=== PATIENT | male | born 1990 | race Caucasian/White ===

== ENCOUNTER 2020-03-03 10:16 | Emergency (ER) | payer SELFPAY ==
[~2020-03-03] VITALS: Ht 180.3 cm; Wt 61.8 kg
[2020-03-03 10:20] VITALS: BP 156/81
[2020-03-03] MEDS ORDERED: LIDOCAINE 1% Multi-Dose 20 ML VIAL. INJ ONE (10:30)
--- NOTE | 2020-03-03 11:37 | PHYS DOC ---
Past Medical History Past Medical History: No Pertinent History Past Surgical History: No Surgical History Smoking Status: Current Every Day Smoker Alcohol Use: Heavy Additional Information: DRINKS 6 BEERS DAILY Social History Narrative: OCCASIONAL MARIJUANA USE General Adult EDM: Chief Complaint: THUMB HPI: HPI: Patient is a 29-year-old otherwise healthy male who presents with right thumb swelling and pain. He was seen on Tuesday for pain and redness was started on Bactrim for a presumed paronychia. He states over the last 24 hours or so the redness and swelling has intensified and the pain has been severe. He denies any fever chills or sweats. He does state that it is painful if he tries to flex his thumb at the DIP. 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 [] Review of Systems: Review of Systems: Constitutional: Denies fever or chills. [] Eyes: Denies change in visual acuity. [] HENT: Denies nasal congestion or sore throat. [] Respiratory: Denies cough or shortness of breath. [] Cardiovascular: Denies chest pain or edema. [] GI: Denies abdominal pain, nausea, vomiting, bloody stools or diarrhea. [] : Denies dysuria. [] Musculoskeletal: Per HPI [] Integument: Denies rash. [] Neurologic: Denies headache, focal weakness or sensory changes. [] Endocrine: Denies polyuria or polydipsia. [] Lymphatic: Denies swollen glands. [] Psychiatric: Denies depression or anxiety. [] Heart Score: Risk Factors: Risk Factors: DM, Current or recent (<one month) smoker, HTN, HLP, family history of CAD, obesity. Risk Scores: Score 0 - 3: 2.5% MACE over next 6 weeks - Discharge Home Score 4 - 6: 20.3% MACE over next 6 weeks - Admit for Clinical Observation Score 7 - 10: 72.7% MACE over next 6 weeks - Early Invasive Strategies Current Medications: Current Medications Medications (Trade) Dose Ordered Sig/Ginny Start Time Stop Time Status Last Admin Dose Admin Lidocaine HCl (Lidocaine 1% 20ml Vial) 20 ml 1X ONCE 03/03/20 10:30 03/03/20 10:33 DC 03/03/20 10:38 20 ML Allergies: Allergies: Allergies Coded Allergies Type Severity Reaction Last Updated Verified No Known Drug Allergies 03/03/20 No Physical Exam: PE: Constitutional: Well developed, well nourished, moderate distress, non-toxic appearance. [] HENT: Normocephalic, atraumatic, bilateral external ears normal, oropharynx moist, no oral exudates, nose normal. [] Eyes: PERRLA, EOMI, conjunctiva normal, no discharge. [] Neck: Normal range of motion, no tenderness, supple, no stridor. [] Cardiovascular:Heart rate regular rhythm, no murmur [] Lungs & Thorax: Bilateral breath sounds clear to auscultation [] Abdomen: Bowel sounds normal, soft, no tenderness, no masses, no pulsatile masses. [] Skin: Right thumb paronychia with abscess. [] Back: No tenderness, no CVA tenderness. [] Extremities: No tenderness, no cyanosis, no clubbing, ROM intact, no edema. [] Neurologic: Alert and oriented X 3, normal motor function, normal sensory function, no focal deficits noted. [] Psychologic: Anxious [] Current Patient Data: Vital Signs: Vital Signs Date Time Temp Pulse Resp B/P (MAP) Pulse Ox O2 Delivery O2 Flow Rate FiO2 03/03/20 10:20 98.2 91 16 156/81 (106) 96 98.2 EKG: EKG: [] Radiology/Procedures: Radiology/Procedures: [] Course & Med Decision Making: Course & Med Decision Making Pertinent Labs and Imaging studies reviewed. (See chart for details) [Procedure: Abscess incision and drainage Digital block on the right thumb was performed using approximately 10 cc of 1% lidocaine without epinephrine. Once adequate anesthesia was obtained the proximal nail was dissected out with a large amount of purulent material then the lateral aspect of the nail was trimmed with more purulent material which was a subungual abscess was drained.] Dragon Disclaimer: Dragon Disclaimer: This electronic medical record was generated, in whole or in part, using a voice recognition dictation system. Departure Departure Impression: Primary Impression: Paronychia of thumb, right Disposition: 01 HOME, SELF-CARE Condition: IMPROVED Referrals: NO PCP (PCP) Patient Instructions: Abscess, Paronychia Additional Instructions: Continue taking your Bactrim antibiotics that you were prescribed on Tuesday. Make sure that you complete the entire course. Justicifation of Admission Dx: Justifications for Admission: Justification of Admission Dx: No DANIE LARA DO Mar 03, 2020 11:37
== END 2020-03-03 11:38 | disposition home or self-care (01) ==
LOC: ER 10:16
DX: L03.011 Cellulitis of right finger (principal); F17.200 Nicotine dependence, unspecified, uncomplicated; F10.20 Alcohol dependence, uncomplicated; Y90.9 Presence of alcohol in blood, level not specified
CPT/HCPCS: 10060; 99282; J3490; 99283